=== PATIENT | female | born 1945 ===

== ENCOUNTER 2023-10-11 09:02 | Inpatient (IN) | payer OTHER ==
[~2023-10-11] VITALS: Ht 162.6 cm; Wt 68.0 kg
[2023-10-12] MEDS ORDERED: ALTOPREV40 MG PO (16:11)
[2023-10-15] MEDS ORDERED: CEFOXITIN SODIUM 2,000 MG VIAL IV ONE ×2 (06:31→14:41)
[2023-10-15] MEDS ORDERED: BUPIVACAINE HCL 0.5% 50ML VIAL ONE (07:58)
[2023-10-15] MEDS ORDERED: LIDOCAINE HCL 1%/EPINEPHRINE 20ML VIAL IJ ONE (07:58)
[2023-10-15] MEDS ORDERED: CEFOXITIN SODIUM 2,000 MG VIAL IV NR (08:30)
[2023-10-15] MEDS ORDERED: LOVASTATIN10 MG PO (09:47)
[2023-10-15] MEDS ORDERED: MORPHINE SULFATE 4 MG/ML CARTRIDGE IV SCH (12:00)
[2023-10-15] MEDS ORDERED: CEFOXITIN SODIUM 1,000 MG VIAL IV SCH (13:00)
[2023-10-15] MEDS ORDERED: ENOXAPARIN SODIUM 30 MG/0.3 ML SYRINGE SUBCUTANEO SCH (17:00)
[2023-10-15] MEDS ORDERED: FAMOTIDINE/PF 20 MG/2 ML VIAL IV SCH (17:00)
[2023-10-15] MEDS ORDERED: ENOXAPARIN SODIUM 30 MG/0.3 ML SYRINGE SUBCUTANEO ONE (17:45)
[2023-10-15] MEDS ORDERED: FAMOTIDINE/PF 20 MG/2 ML VIAL ONE (17:45)
[2023-10-16] MEDS ORDERED: ACETAMINOPHEN 500 MG GEL..CAP PO SCH (21:00)
== END 2023-10-17 18:48 | disposition home or self-care (01) | DRG 331 ==
LOC: SURH 10-15 05:29 → O/R 10-15 05:29 → SURH 10-15 09:45
PROVIDERS: ADMIT Surgery; ATTEND Surgery
PROC: 0DBM4ZZ Excision of Descending Colon, Percutaneous Endoscopic Approach (ICD-10-PCS; principal; 2023-10-15 15:45)
DX: C18.6 Malignant neoplasm of descending colon (principal); R59.0 Localized enlarged lymph nodes